=== PATIENT | male | born 1975 | race Caucasian/White ===

== ENCOUNTER 2021-05-30 04:39 | Emergency (ER) | payer OTHER ==
[~2021-05-30] VITALS: Ht 177.8 cm; Wt 92.0 kg
--- NOTE | 2021-05-30 04:43 | PHYS DOC ---
Adult General HPI HPI Patient is a 45-year-old male who presents with chest/muscle spasms. States that they come occasionally. Denies any recent travels, traumas, illnesses, fevers, actual chest pain, shortness of breath, dyspnea on exertion, orthopnea, PND, edema. Denies any family history that he is aware of of cardiac events especially at his age. Denies any COVID/flu/cold symptoms. States he is eating and drinking normally. States he is making urine and stool normally for him. Review of Systems Review of Systems Review of systems otherwise unremarkable except noted in HPI Physical Exam Physical Exam Constitutional: Well developed, well nourished, no acute distress, non-toxic appearance. [] HENT: Normocephalic, atraumatic, bilateral external ears normal, oropharynx moist, no oral exudates, nose normal. [] Eyes: conjunctiva normal, no discharge. [] Neck: Normal range of motion, no tenderness, supple, no stridor. [] Cardiovascular:Heart rate regular rhythm, no murmur [] Lungs & Thorax: Bilateral breath sounds clear to auscultation [] Abdomen: soft, no tenderness, no masses, no pulsatile masses. [] Skin: Warm, dry, no erythema, no rash. [] Back: No tenderness, no CVA tenderness. [] Extremities: No tenderness, no cyanosis, no clubbing, ROM intact, no edema. [] Neurologic: Alert and oriented X 3, normal motor function, normal sensory function, no focal deficits noted. [] Psychologic: Affect normal, judgement normal, mood normal. [] EKG EKG [] Radiology/Procedures Radiology/Procedures [] Heart Score C/O Chest Pain: No Risk Factors: Risk Factors: DM, Current or recent (<one month) smoker, HTN, HLP, family history of CAD, obesity. Risk Scores: Risk Factors: DM, Current or recent (<one month) smoker, HTN, HLP, family history of CAD, obesity. Course & Med Decision Making Course & Med Decision Making Patient is a 45-year-old male who presents with chest wall muscle spasm Vital signs nonconcerning. Physical exam noted above. EKG with a rate of 72, QRS of 84, QTc of 440, no STEMI. Discussed all findings with patient. Discussed complete cardiac work-up versus follow-up. Patient stated he did not really want to come in feels silly now because he is just having a little muscle spasm and is otherwise healthy. Advised to follow-up this morning with his primary care physician and set up a post ER follow-up visit. Gave strict return precautions to the ED. Patient grateful, verbalized understanding and agreed with plan of discharge Dragon Disclaimer Dragon Disclaimer This electronic medical record was generated, in whole or in part, using a voice recognition dictation system. Departure Departure: Impression: Primary Impression: Muscle spasm Disposition: HOME / SELF CARE / HOMELESS Condition: GOOD Referrals: PCP,UNKNOWN (PCP) LYNSEY PRITCHETT MD Patient Instructions: Chest Pain (Nonspecific) Additional Instructions: Thank you for coming into the emergency department tonight and allowing us to take care of you. Please read the attached information carefully to go over things we discussed. Please follow-up in the morning with your primary care physician update on your ED visit and set up a follow-up soon as possible. Please come back with new or concerning symptoms as discussed. IAN MEJIA MD May 30, 2021 04:43
[2021-05-30 05:36] VITALS: BP 135/95
--- NOTE | 2021-05-30 08:18 | EKG ---
[address] [address] Test Date: 2021-05-30 Test Time: 05:16:15 Pat Name: SELAM DOUGLAS Department: Room: Gender: M Route Sales Representative: : [id number] Requested By: IAN MEJIA Order Number: [id number] Reading MD: Prasad Soto MD Measurements Intervals [place] Rate: 72 P: 33 PA: 170 QRS: -21 QRSD: 84 T: 12 QT: 400 QTc: 440 Interpretive Statements SINUS RHYTHM Electronically Signed On 06-02-2021 9:34:53 FACILITY SECURITY OFFICER by Prasad Soto MD
== END 2021-05-30 06:27 | disposition home or self-care (01) ==
LOC: ER 04:39
DX: M62.838 Other muscle spasm (principal)
CPT/HCPCS: 93005; 99283